=== PATIENT | male | born 1950 | race Caucasian/White ===

== ENCOUNTER 2016-10-30 15:05 | Outpatient (RCR) | payer MEDICARE | END 2017-01-28 | disposition home or self-care (01) | LOC: CARDREHAB 15:05 | DX: Z48.812 Encounter for surgical aftercare following surgery on the circulatory system (principal); I21.4 Non-ST elevation (NSTEMI) myocardial infarction; I11.9 Hypertensive heart disease without heart failure; Z95.1 Presence of aortocoronary bypass graft ==

== ENCOUNTER → 2016-11-28 | Outpatient (CLI) | payer MEDICARE | LOC: LAB 15:21 | DX: I25.10 Atherosclerotic heart disease of native coronary artery without angina pectoris (principal); E11.9 Type 2 diabetes mellitus without complications; I48.0 Paroxysmal atrial fibrillation ==

== ENCOUNTER → 2017-01-09 | Outpatient (CLI) | payer MEDICARE | LOC: LAB 13:33 | DX: E29.1 Testicular hypofunction (principal); R06.00 Dyspnea, unspecified; M25.512 Pain in left shoulder ==

== ENCOUNTER → 2017-01-29 | Outpatient (CLI) | payer MEDICARE | LOC: RAD 07:08 | DX: M25.512 Pain in left shoulder (principal); Z87.828 Personal history of other (healed) physical injury and trauma; M77.8 Other enthesopathies, not elsewhere classified; M25.412 Effusion, left shoulder; M19.012 Primary osteoarthritis, left shoulder ==

== ENCOUNTER 2017-02-03 09:35 | Outpatient (RCR) | payer MEDICARE | END 2017-05-04 | disposition home or self-care (01) | LOC: CARDREHAB | DX: Z48.812 Encounter for surgical aftercare following surgery on the circulatory system (principal); Z95.1 Presence of aortocoronary bypass graft; I21.4 Non-ST elevation (NSTEMI) myocardial infarction ==

== ENCOUNTER → 2017-06-03 | Outpatient (CLI) | payer MEDICARE | LOC: LAB 10:36 | DX: Z51.81 Encounter for therapeutic drug level monitoring (principal); Z79.01 Long term (current) use of anticoagulants; I48.0 Paroxysmal atrial fibrillation; I25.10 Atherosclerotic heart disease of native coronary artery without angina pectoris; E11.9 Type 2 diabetes mellitus without complications ==

== ENCOUNTER 2017-07-02 09:30 | Outpatient (RCR) | payer MEDICARE | END 2017-07-02 10:00 | disposition home or self-care (01) | LOC: PT 09:30 | DX: M25.512 Pain in left shoulder (principal) | CPT/HCPCS: G8978-GP; G8979-GP ==

== ENCOUNTER 2017-12-19 10:43 | Emergency (ER) | payer MEDICARE ==
[~2017-12-19] VITALS: Ht 175.3 cm; Wt 86.4 kg
[2017-12-19] MEDS ORDERED: BUTRANS10 MCG/HR TD (10:47)
[2017-12-19] MEDS ORDERED: GLUCOTROL 5M5 MG/TAB (10:47)
[2017-12-19] MEDS ORDERED: COUMADIN 1MG1 MG/TAB (10:47)
[2017-12-19] MEDS ORDERED: KETOROLAC10 MG PO (12:24)
[2017-12-19 12:36] VITALS: BP 164/82
== END 2017-12-19 12:29 | disposition home or self-care (01) ==
LOC: ED 10:43
DX: S30.0XXA Contusion of lower back and pelvis, initial encounter (principal); W00.0XXA Fall on same level due to ice and snow, initial encounter; Y92.009 Unspecified place in unspecified non-institutional (private) residence as the place of occurrence of the external cause; Z79.01 Long term (current) use of anticoagulants
CPT/HCPCS: J1885

== ENCOUNTER → 2018-01-16 | Outpatient (CLI) | payer MEDICARE ==
[2017-12-19 12:36] VITALS: BP 164/82
[~2018-01-16] MED LIST: BUTRANS10 MCG/HR TD; COUMADIN 1MG1 MG/TAB; GLUCOTROL 5M5 MG/TAB; KETOROLAC10 MG PO
[2018-01-16 14:51] LABS: EOS # 0.1 (0.04-0.40); EOS % 1.5 % (0.0-4.0); HEMATOCRIT 43.9 % (42.0-52.0); HEMOGLOBIN 14.6 g/dL (13.5-18.0); LYMPH# 1.5 (1.50-4.00); MEAN CELL VOLUME 89 fl (78-100); MEAN CORPUSCULAR HEMOGLOBIN 29 pg (27-31); MEAN CORPUSCULAR HGB CONC 33 g/dL (33-37); MEAN PLATELET VOLUME 10.7 fl (7.4-10.4); MONO # 0.7 (0.20-0.80); NEU # 5.4 (1.40-6.50); PLATELET COUNT 214 K/mm3 (130-400); RED BLOOD COUNT 4.96 M/mm3 (4.20-5.60); RED CELL DISTRIBUTION WIDTH 13.7 % (11.5-14.5); WHITE BLOOD COUNT 7.8 K/mm3 (4.8-10.8)
[2018-01-16 14:52] LABS: ALBUMIN 4.3 g/dL (3.5-5.0); CALCIUM 9.7 mg/dL (8.4-10.2); POTASSIUM 4.4 mmol/L (3.6-5.0); TOTAL BILIRUBIN 0.4 mg/dL (0.2-1.3); TOTAL PROTEIN 8.2 g/dL (6.3-8.2)
[2018-01-16 14:55] LABS: PROTHROMBIN TIME 13.6 SECONDS (9.0-12.0)
[2018-01-16 17:59] LABS: ERYTHROCYTE SEDIMENTATION RATE 6 mm/hr (0-20)
[2018-01-16 23:24] LABS: TESTOSTERONE 339 ng/dL (221-716)
== END ==
LOC: LAB 13:51
PROVIDERS: Internal Medicine
DX: I48.91 Unspecified atrial fibrillation (principal); I25.10 Atherosclerotic heart disease of native coronary artery without angina pectoris; E11.9 Type 2 diabetes mellitus without complications

== ENCOUNTER 2018-02-13 09:30 | Outpatient (RCR) | payer MEDICARE | END 2018-02-13 10:00 | disposition home or self-care (01) | LOC: PT 09:30 | DX: R26.89 Other abnormalities of gait and mobility (principal) | CPT/HCPCS: G8978-GP; G8979-GP ==

== ENCOUNTER → 2019-01-04 | Outpatient (CLI) | payer MEDICARE ==
[~2019-01-04] MED LIST changes: +BUTRANS5 MCG/HR TD; +CHILDREN'S ASPI81 M1 PO; +FLOMAX0.4 MG PO; +FLUOXETINE HCL10 MG PO; +GLUCOTROL 5M5 MG/TAB PO; +GOOD NEIGHBOR P20 MG PO; +NITROSTAT0.4 M1 SL; +OMEPRAZOLE40 MG PO; +PRAVASTATIN SOD80 MG PO; +TOPROL XL 50MG50 MG PO; +WARFARIN SOD5 MG PO
[2019-01-04 15:12] LABS: EOS # 0.2 (0.04-0.40); EOS % 1.4 % (0.0-4.0); HEMATOCRIT 44.9 % (42.0-52.0); HEMOGLOBIN 14.6 g/dL (13.5-18.0); LYMPH# 1.5 (1.50-4.00); MEAN CELL VOLUME 90 fl (78-100); MEAN CORPUSCULAR HEMOGLOBIN 29 pg (27-31); MEAN CORPUSCULAR HGB CONC 33 g/dL (33-37); MEAN PLATELET VOLUME 10.6 fl (7.4-10.4); MONO # 0.8 (0.20-0.80); NEU # 8.6 (1.40-6.50); PLATELET COUNT 276 K/mm3 (130-400); RED BLOOD COUNT 4.98 M/mm3 (4.20-5.60); RED CELL DISTRIBUTION WIDTH 13.6 % (11.5-14.5); WHITE BLOOD COUNT 11.1 K/mm3 (4.8-10.8)
[2019-01-04 15:56] LABS: ALBUMIN 4.7 g/dL (3.5-5.0); TOTAL BILIRUBIN 0.6 mg/dL (0.2-1.3); TOTAL PROTEIN 8.3 g/dL (6.3-8.2)
[2019-01-04 16:23] LABS: ERYTHROCYTE SEDIMENTATION RATE 27 mm/hr (0-20)
[2019-01-05 02:35] LABS: TESTOSTERONE 322 ng/dL (221-716)
== END ==
LOC: LAB 14:48
PROVIDERS: Internal Medicine
DX: Z12.5 Encounter for screening for malignant neoplasm of prostate (principal); I25.10 Atherosclerotic heart disease of native coronary artery without angina pectoris; E11.9 Type 2 diabetes mellitus without complications; I48.0 Paroxysmal atrial fibrillation

== ENCOUNTER 2019-01-07 14:49 | Emergency (ER) | payer MEDICARE ==
[~2019-01-07] VITALS: Ht 177.8 cm; Wt 86.4 kg
[~2019-01-07 14:49] MED LIST changes: -BUTRANS5 MCG/HR TD; -CHILDREN'S ASPI81 M1 PO; -FLOMAX0.4 MG PO; -FLUOXETINE HCL10 MG PO; -GLUCOTROL 5M5 MG/TAB PO; -GOOD NEIGHBOR P20 MG PO; -NITROSTAT0.4 M1 SL; -OMEPRAZOLE40 MG PO; -PRAVASTATIN SOD80 MG PO; -TOPROL XL 50MG50 MG PO; -WARFARIN SOD5 MG PO
[2019-01-07] MEDS ORDERED: GLUCOTROL 5M5 MG/TAB PO ×2 (15:30)
[2019-01-07] MEDS ORDERED: WARFARIN SOD5 MG PO (15:30)
[2019-01-07] MEDS ORDERED: NITROSTAT0.4 M1 SL (15:31)
[2019-01-07] MEDS ORDERED: OMEPRAZOLE40 MG PO (15:31)
[2019-01-07] MEDS ORDERED: FLOMAX0.4 MG PO (15:31)
[2019-01-07] MEDS ORDERED: TOPROL XL 50MG50 MG PO (15:32)
[2019-01-07] MEDS ORDERED: PRAVASTATIN SOD80 MG PO (15:32)
[2019-01-07] MEDS ORDERED: FLUOXETINE HCL10 MG PO (15:32)
[2019-01-07] MEDS ORDERED: GOOD NEIGHBOR P20 MG PO (15:33)
[2019-01-07] MEDS ORDERED: BUTRANS5 MCG/HR TD (15:33)
[2019-01-07] MEDS ORDERED: CHILDREN'S ASPI81 M1 PO (15:33)
[2019-01-07 15:35] LABS: EOS # 0.1 (0.04-0.40); EOS % 1.2 % (0.0-4.0); HEMATOCRIT 43.2 % (42.0-52.0); LYMPH# 1.7 (1.50-4.00); MEAN CELL VOLUME 90 fl (78-100); MEAN CORPUSCULAR HEMOGLOBIN 29 pg (27-31); MEAN CORPUSCULAR HGB CONC 32 g/dL (33-37); MEAN PLATELET VOLUME 10.6 fl (7.4-10.4); MONO # 0.9 (0.20-0.80); NEU # 7.9 (1.40-6.50); PLATELET COUNT 247 K/mm3 (130-400); RED BLOOD COUNT 4.79 M/mm3 (4.20-5.60); RED CELL DISTRIBUTION WIDTH 13.4 % (11.5-14.5); WHITE BLOOD COUNT 10.6 K/mm3 (4.8-10.8)
[2019-01-07 15:55] LABS: ALBUMIN 4.5 g/dL (3.5-5.0); AST-SGOT 15 U/L (17-59); CALCIUM 9.8 mg/dL (8.4-10.2); CARBON DIOXIDE 29 mmol/L (22-30); GLUCOSE 340 mg/dL (75-110); POTASSIUM 4.1 mmol/L (3.6-5.0); SODIUM 138 mmol/L (137-145); TOTAL BILIRUBIN 0.5 mg/dL (0.2-1.3); TOTAL PROTEIN 8.6 g/dL (6.3-8.2)
[2019-01-07 16:00] LABS: ALT/SGPT < 3 U/L (21-72)
[2019-01-07 16:20] LABS: URINE APPEARANCE HAZY; URINE BILIRUBIN NEGATIVE (NEGATIVE); URINE COLOR YELLOW; URINE KETONE NEGATIVE (NEGATIVE); URINE PROTEIN(semi-quant) TRACE mg/dL (NEGATIVE); URINE UROBILINOGEN NORMAL (NORMAL)
[2019-01-07 16:21] LABS: URINE BLOOD TRACE (NEGATIVE); URINE LEUKOCYTE ESTERASE 1+ (NEGATIVE); URINE NITRATE NEGATIVE (NEGATIVE); URINE WBC >50 /hpf (0-3)
[2019-01-07 17:36] VITALS: BP 139/80
== END 2019-01-07 16:36 | disposition other institution (70) ==
LOC: ED 14:49
PROVIDERS: Nurse Practitioner Family
DX: R41.89 Other symptoms and signs involving cognitive functions and awareness (principal); E86.0 Dehydration; F03.90 Unspecified dementia, unspecified severity, without behavioral disturbance, psychotic disturbance, mood disturbance, and anxiety; E11.65 Type 2 diabetes mellitus with hyperglycemia; R74.0 Nonspecific elevation of levels of transaminase and lactic acid dehydrogenase [LDH]; N39.0 Urinary tract infection, site not specified; I51.7 Cardiomegaly; I25.10 Atherosclerotic heart disease of native coronary artery without angina pectoris; E66.9 Obesity, unspecified; I48.91 Unspecified atrial fibrillation; Z91.19 Patient's noncompliance with other medical treatment and regimen; Z79.01 Long term (current) use of anticoagulants; Z79.82 Long term (current) use of aspirin

== ENCOUNTER 2019-01-07 16:36 | Inpatient (IN) | payer MEDICARE ==
[~2019-01-07] VITALS: Ht 177.8 cm; Wt 91.3 kg
[~2019-01-07 16:36] MED LIST changes: +BUTRANS5 MCG/HR TD; +CHILDREN'S ASPI81 M1 PO; +FLOMAX0.4 MG PO; +FLUOXETINE HCL10 MG PO; +GLUCOTROL 5M5 MG/TAB PO; +GOOD NEIGHBOR P20 MG PO; +NITROSTAT0.4 M1 SL; +OMEPRAZOLE40 MG PO; +PRAVASTATIN SOD80 MG PO; +TOPROL XL 50MG50 MG PO; +WARFARIN SOD5 MG PO
[2019-01-07 17:42] VITALS: BP 139/89
[2019-01-07 18:23] VITALS: BP 139/80
[2019-01-07 23:13] VITALS: BP 151/76
[2019-01-08] VITALS (7 sets, daily range): BP systolic 120–148; BP diastolic 70–89
[2019-01-08 07:18] LABS: CALCIUM 8.4 mg/dL (8.4-10.2)
[2019-01-08 07:24] LABS: EOS # 0.2 (0.04-0.40); EOS % 1.7 % (0.0-4.0); HEMATOCRIT 36.2 % (42.0-52.0); HEMOGLOBIN 11.9 g/dL (13.5-18.0); LYMPH# 1.5 (1.50-4.00); MEAN CELL VOLUME 90 fl (78-100); MEAN CORPUSCULAR HEMOGLOBIN 30 pg (27-31); MEAN CORPUSCULAR HGB CONC 33 g/dL (33-37); MEAN PLATELET VOLUME 10.7 fl (7.4-10.4); MONO # 0.7 (0.20-0.80); NEU # 7.2 (1.40-6.50); PLATELET COUNT 187 K/mm3 (130-400); RED BLOOD COUNT 4.01 M/mm3 (4.20-5.60); RED CELL DISTRIBUTION WIDTH 13.2 % (11.5-14.5); WHITE BLOOD COUNT 9.7 K/mm3 (4.8-10.8)
[2019-01-09 06:04] VITALS: BP 162/79
[2019-01-09 09:52] LABS: PROTHROMBIN TIME 10.7 SECONDS (9.0-12.0)
[2019-01-09 18:24] VITALS: BP 133/78
[2019-01-10 06:28] VITALS: BP 144/89
[2019-01-10 09:13] LABS: HEMATOCRIT 35.2 % (42.0-52.0); HEMOGLOBIN 11.7 g/dL (13.5-18.0); MEAN CELL VOLUME 90 fl (78-100); MEAN CORPUSCULAR HEMOGLOBIN 30 pg (27-31); MEAN CORPUSCULAR HGB CONC 33 g/dL (33-37); PLATELET COUNT 193 K/mm3 (130-400); RED BLOOD COUNT 3.93 M/mm3 (4.20-5.60); RED CELL DISTRIBUTION WIDTH 13.4 % (11.5-14.5); WHITE BLOOD COUNT 10.5 K/mm3 (4.8-10.8)
[2019-01-10 09:26] LABS: CALCIUM 8.6 mg/dL (8.4-10.2); PROTHROMBIN TIME 11.2 SECONDS (9.0-12.0)
[2019-01-10 09:40] LABS: BAND 1 % (0-10); LYMPHOCYTE 5 % (20-51); MONOCYTE 4 % (3-10); NEUTROPHILS 90 % (42-75)
== END 2019-01-10 15:52 | disposition swing bed (61) | DRG 884 ==
LOC: MED/SURG 16:36
PROVIDERS: Internal Medicine; Physician Assistant; ADMIT Nurse Practitioner Family
DX: F03.90 Unspecified dementia, unspecified severity, without behavioral disturbance, psychotic disturbance, mood disturbance, and anxiety (principal); N39.0 Urinary tract infection, site not specified; G93.40 Encephalopathy, unspecified; F05 Delirium due to known physiological condition; T76.01XA Adult neglect or abandonment, suspected, initial encounter; E11.65 Type 2 diabetes mellitus with hyperglycemia; E86.0 Dehydration; I48.91 Unspecified atrial fibrillation; I35.8 Other nonrheumatic aortic valve disorders; E78.2 Mixed hyperlipidemia; I25.10 Atherosclerotic heart disease of native coronary artery without angina pectoris; Z95.1 Presence of aortocoronary bypass graft; Z79.01 Long term (current) use of anticoagulants; Z91.14 Patient's other noncompliance with medication regimen; Z68.28 Body mass index [BMI] 28.0-28.9, adult
CPT/HCPCS: J0744; J1650; J1815; J2060; J7030

== ENCOUNTER → 2019-02-18 | Outpatient (CLI) | payer MEDICARE ==
[2019-01-21 06:18] VITALS: BP 126/61
[~2019-02-18] MED LIST changes: +LEVEMIR FLEX100 U/ML SQ
[2019-02-18 13:05] LABS: CALCIUM 9.1 mg/dL (8.4-10.2); POTASSIUM 4.1 mmol/L (3.6-5.0); TOTAL BILIRUBIN 0.4 mg/dL (0.2-1.3); TOTAL PROTEIN 7.2 g/dL (6.3-8.2)
[2019-02-18 13:07] LABS: EOS # 0.1 (0.04-0.40); EOS % 1.6 % (0.0-4.0); HEMATOCRIT 31.9 % (42.0-52.0); HEMOGLOBIN 9.8 g/dL (13.5-18.0); MEAN CELL VOLUME 96 fl (78-100); MEAN CORPUSCULAR HEMOGLOBIN 30 pg (27-31); MEAN CORPUSCULAR HGB CONC 31 g/dL (33-37); MONO # 0.6 (0.20-0.80); NEU # 3.3 (1.40-6.50); PLATELET COUNT 231 K/mm3 (130-400); RED BLOOD COUNT 3.31 M/mm3 (4.20-5.60); RED CELL DISTRIBUTION WIDTH 13.2 % (11.5-14.5)
[2019-02-18 14:13] LABS: PROTHROMBIN TIME 17.9 SECONDS (9.0-12.0)
== END ==
LOC: LAB 12:06
PROVIDERS: Internal Medicine
DX: I25.10 Atherosclerotic heart disease of native coronary artery without angina pectoris (principal); E11.9 Type 2 diabetes mellitus without complications; I48.91 Unspecified atrial fibrillation

== ENCOUNTER 2019-02-22 20:06 | Emergency (ER) | payer MEDICARE ==
[2019-02-22 22:20] VITALS: BP 154/92
== END 2019-02-22 22:20 | disposition home or self-care (01) ==
LOC: ED 20:06
DX: M54.2 Cervicalgia (principal); E11.9 Type 2 diabetes mellitus without complications; I25.2 Old myocardial infarction; Z79.82 Long term (current) use of aspirin; Z79.4 Long term (current) use of insulin; W01.0XXA Fall on same level from slipping, tripping and stumbling without subsequent striking against object, initial encounter; Y92.009 Unspecified place in unspecified non-institutional (private) residence as the place of occurrence of the external cause

== ENCOUNTER → 2019-03-04 | Outpatient (CLI) | payer MEDICARE ==
[2019-02-22 22:20] VITALS: BP 154/92
[2019-03-04 09:45] LABS: HEMATOCRIT 42.3 % (42.0-52.0); HEMOGLOBIN 13.5 g/dL (13.5-18.0); MEAN CELL VOLUME 90 fl (78-100); MEAN CORPUSCULAR HEMOGLOBIN 29 pg (27-31); MEAN CORPUSCULAR HGB CONC 32 g/dL (33-37); MEAN PLATELET VOLUME 10.1 fl (7.4-10.4); PLATELET COUNT 273 K/mm3 (130-400); RED BLOOD COUNT 4.72 M/mm3 (4.20-5.60); RED CELL DISTRIBUTION WIDTH 14.4 % (11.5-14.5); WHITE BLOOD COUNT 8.4 K/mm3 (4.8-10.8)
[2019-03-04 10:18] LABS: ALBUMIN 4.4 g/dL (3.4-4.8); POTASSIUM 4.1 mmol/L (3.5-5.1); TOTAL BILIRUBIN 0.8 mg/dL (0.2-1.2); TOTAL PROTEIN 8.2 g/dL (6.2-8.1)
[2019-03-04 10:34] LABS: LYMPHOCYTE 23 % (20-51); MONOCYTE 8 % (3-10); NEUTROPHILS 54 % (42-75)
== END ==
LOC: LAB 09:13
PROVIDERS: Internal Medicine
DX: D64.9 Anemia, unspecified (principal); I48.91 Unspecified atrial fibrillation; R51 Headache

== ENCOUNTER → 2019-03-05 | Outpatient (CLI) | payer MEDICARE ==
[2019-02-22 22:20] VITALS: BP 154/92
[2019-03-05 17:09] LABS: URINE APPEARANCE CLEAR; URINE BILIRUBIN NEGATIVE (NEGATIVE); URINE BLOOD NEGATIVE (NEGATIVE); URINE COLOR YELLOW; URINE GLUCOSE NEGATIVE (NEGATIVE); URINE KETONE NEGATIVE (NEGATIVE); URINE LEUKOCYTE ESTERASE NEGATIVE (NEGATIVE); URINE NITRATE NEGATIVE (NEGATIVE); URINE PROTEIN(semi-quant) NEGATIVE (NEGATIVE); URINE UROBILINOGEN NORMAL (NORMAL); URINE WBC 0-1 /hpf (0-3)
== END ==
LOC: LAB 15:59
PROVIDERS: Internal Medicine
DX: D64.9 Anemia, unspecified (principal); I48.91 Unspecified atrial fibrillation; R51 Headache

== ENCOUNTER → 2019-08-31 | Outpatient (CLI) | payer MEDICARE ==
[2019-08-31 15:53] LABS: EOS # 0.1 (0.04-0.40); EOS % 1.9 % (0.0-4.0); HEMATOCRIT 38.4 % (42.0-52.0); HEMOGLOBIN 12.4 g/dL (13.5-18.0); LYMPH# 0.9 (1.50-4.00); MEAN CELL VOLUME 94 fl (78-100); MEAN CORPUSCULAR HEMOGLOBIN 30 pg (27-31); MEAN CORPUSCULAR HGB CONC 32 g/dL (33-37); MEAN PLATELET VOLUME 10.6 fl (7.4-10.4); MONO # 0.5 (0.20-0.80); NEU # 5.3 (1.40-6.50); PLATELET COUNT 184 K/mm3 (130-400); RED BLOOD COUNT 4.09 M/mm3 (4.20-5.60); RED CELL DISTRIBUTION WIDTH 13.6 % (11.5-14.5); WHITE BLOOD COUNT 6.8 K/mm3 (4.8-10.8)
[2019-08-31 15:55] LABS: POTASSIUM 4.3 mmol/L (3.5-5.1)
[2019-08-31 15:56] LABS: CALCIUM 9.4 mg/dL (8.3-10.5)
[2019-08-31 15:57] LABS: TOTAL PROTEIN 7.3 g/dL (6.2-8.1)
[2019-08-31 15:58] LABS: PROTHROMBIN TIME 18.9 SECONDS (9.0-12.0)
[2019-08-31 15:59] LABS: TOTAL BILIRUBIN 0.3 mg/dL (0.2-1.2)
[2019-08-31 16:13] LABS: URINE APPEARANCE CLEAR; URINE COLOR YELLOW; URINE GLUCOSE NEGATIVE (NEGATIVE); URINE KETONE NEGATIVE (NEGATIVE); URINE PROTEIN(semi-quant) TRACE mg/dL (NEGATIVE)
[2019-08-31 16:14] LABS: URINE BILIRUBIN NEGATIVE (NEGATIVE); URINE BLOOD NEGATIVE (NEGATIVE); URINE LEUKOCYTE ESTERASE NEGATIVE (NEGATIVE); URINE MUCUS PRESENT (NOT PRESENT); URINE NITRATE NEGATIVE (NEGATIVE); URINE UROBILINOGEN NORMAL (NORMAL)
== END ==
LOC: LAB 15:20
PROVIDERS: Internal Medicine
DX: D64.9 Anemia, unspecified (principal); E11.9 Type 2 diabetes mellitus without complications; I25.10 Atherosclerotic heart disease of native coronary artery without angina pectoris; I48.91 Unspecified atrial fibrillation

== ENCOUNTER → 2019-09-14 | Outpatient (CLI) | payer MEDICARE ==
[2019-09-14 13:07] LABS: PROTHROMBIN TIME 22.1 SECONDS (9.0-12.0)
== END ==
LOC: LAB 12:40
PROVIDERS: Internal Medicine Interventional Cardiology
DX: I48.91 Unspecified atrial fibrillation (principal)

== ENCOUNTER → 2019-10-07 | Outpatient (CLI) | payer MEDICARE ==
[2019-10-07 14:47] LABS: POTASSIUM 4.2 mmol/L (3.5-5.1)
[2019-10-07 14:48] LABS: CALCIUM 9.3 mg/dL (8.3-10.5)
[2019-10-07 14:49] LABS: EOS # 0.1 (0.04-0.40); EOS % 1.3 % (0.0-4.0); HEMATOCRIT 36.8 % (42.0-52.0); HEMOGLOBIN 11.4 g/dL (13.5-18.0); LYMPH# 1.1 (1.50-4.00); MEAN CELL VOLUME 95 fl (78-100); MEAN CORPUSCULAR HEMOGLOBIN 30 pg (27-31); MEAN CORPUSCULAR HGB CONC 31 g/dL (33-37); MEAN PLATELET VOLUME 10.4 fl (7.4-10.4); MONO # 0.6 (0.20-0.80); NEU # 4.6 (1.40-6.50); PLATELET COUNT 202 K/mm3 (130-400); RED BLOOD COUNT 3.86 M/mm3 (4.20-5.60); RED CELL DISTRIBUTION WIDTH 14.2 % (11.5-14.5); WHITE BLOOD COUNT 6.3 K/mm3 (4.8-10.8)
[2019-10-07 15:29] LABS: PROTHROMBIN TIME 16.5 SECONDS (9.0-12.0)
== END ==
LOC: LAB 14:18
PROVIDERS: Internal Medicine Interventional Cardiology
DX: I73.9 Peripheral vascular disease, unspecified (principal); I48.91 Unspecified atrial fibrillation

== ENCOUNTER 2020-01-03 16:47 | Emergency (ER) | payer MEDICARE ==
[~2020-01-03] VITALS: Ht 172.7 cm; Wt 90.9 kg
[2020-01-03 17:40] LABS: HEMATOCRIT 35.6 % (42.0-52.0); HEMOGLOBIN 11.1 g/dL (13.5-18.0); MEAN CELL VOLUME 91 fl (78-100); MEAN CORPUSCULAR HEMOGLOBIN 28 pg (27-31); MEAN CORPUSCULAR HGB CONC 31 g/dL (33-37); MEAN PLATELET VOLUME 10.1 fl (7.4-10.4); PLATELET COUNT 176 K/mm3 (130-400); RED BLOOD COUNT 3.92 M/mm3 (4.20-5.60); RED CELL DISTRIBUTION WIDTH 14.9 % (11.5-14.5); WHITE BLOOD COUNT 11.1 K/mm3 (4.8-10.8)
[2020-01-03 17:48] LABS: ALBUMIN 3.8 g/dL (3.4-4.8); POTASSIUM 4.2 mmol/L (3.5-5.1); SODIUM 137 mmol/L (136-145)
[2020-01-03 17:49] LABS: CALCIUM 9.2 mg/dL (8.3-10.5)
[2020-01-03 17:50] LABS: GLUCOSE 127 mg/dL (75-110)
[2020-01-03 17:51] LABS: TOTAL PROTEIN 6.9 g/dL (6.2-8.1)
[2020-01-03 17:52] LABS: CARBON DIOXIDE 24 mmol/L (23-31)
[2020-01-03 17:56] LABS: AST-SGOT 18 U/L (5-34)
[2020-01-03 17:57] LABS: ALT/SGPT 18 U/L (0-55)
[2020-01-03 18:12] LABS: TROPONIN-I < 0.03 ng/mL (<0.030)
[2020-01-03 18:14] LABS: LYMPHOCYTE 10 % (20-51); MONOCYTE 8 % (3-10); NEUTROPHILS 80 % (42-75)
[2020-01-03 18:23] LABS: TOTAL BILIRUBIN 0.5 mg/dL (0.2-1.2)
[2020-01-03 18:48] LABS: PROTHROMBIN TIME 47.2 SECONDS (9.0-12.0)
[2020-01-03 19:04] LABS: URINE APPEARANCE CLEAR; URINE BILIRUBIN NEGATIVE (NEGATIVE); URINE BLOOD NEGATIVE (NEGATIVE); URINE COLOR YELLOW; URINE GLUCOSE NEGATIVE (NEGATIVE); URINE KETONE NEGATIVE (NEGATIVE); URINE LEUKOCYTE ESTERASE NEGATIVE (NEGATIVE); URINE NITRATE NEGATIVE (NEGATIVE); URINE PROTEIN(semi-quant) TRACE mg/dL (NEGATIVE); URINE UROBILINOGEN NORMAL (NORMAL); URINE WBC 0-1 /hpf (0-3)
[2020-01-03 19:05] LABS: URINE MUCUS PRESENT (NOT PRESENT)
[2020-01-03 20:04] VITALS: BP 155/88
== END 2020-01-03 20:25 | disposition short-term general hospital (02) ==
LOC: ED 16:47
PROVIDERS: Nurse Practitioner Primary Care
DX: I63.89 Other cerebral infarction (principal); I48.91 Unspecified atrial fibrillation; I25.10 Atherosclerotic heart disease of native coronary artery without angina pectoris; I25.2 Old myocardial infarction; E11.9 Type 2 diabetes mellitus without complications; E78.5 Hyperlipidemia, unspecified; F03.90 Unspecified dementia, unspecified severity, without behavioral disturbance, psychotic disturbance, mood disturbance, and anxiety; Z79.01 Long term (current) use of anticoagulants; Z79.4 Long term (current) use of insulin; Z79.82 Long term (current) use of aspirin; Z86.79 Personal history of other diseases of the circulatory system; Z95.5 Presence of coronary angioplasty implant and graft